=== PATIENT | female | born 1955 | race Caucasian/White ===

== ENCOUNTER 2017-09-24 14:44 | Emergency (ER) | payer MEDICARE, OTHER | END 2017-09-24 15:24 | disposition home or self-care (01) | LOC: SCSER 14:44 | DX: G89.28 Other chronic postprocedural pain (principal); Z46.3 Encounter for fitting and adjustment of dental prosthetic device; F41.9 Anxiety disorder, unspecified; F17.210 Nicotine dependence, cigarettes, uncomplicated; Z97.2 Presence of dental prosthetic device (complete) (partial) | CPT/HCPCS: 99282 ==

== ENCOUNTER 2017-12-23 14:00 | Emergency (ER) | payer MEDICARE, OTHER | END 2017-12-23 14:41 | disposition home or self-care (01) | LOC: SCSER 14:00 | DX: S00.512A Abrasion of oral cavity, initial encounter (principal); F43.10 Post-traumatic stress disorder, unspecified; F17.210 Nicotine dependence, cigarettes, uncomplicated; F41.0 Panic disorder [episodic paroxysmal anxiety]; X58.XXXA Exposure to other specified factors, initial encounter | CPT/HCPCS: 99282 ==

== ENCOUNTER 2018-11-18 15:58 | Emergency (ER) | payer MEDICARE, OTHER ==
--- NOTE | 2018-11-18 16:41 | RAD ---
Left RIBS 3 views Chest one view HISTORY: Fall. Chest injury. FINDINGS: Nondisplaced oblique fracture of the lateral aspect of the left sixth rib. No evidence of p neumothorax. Old healed fracture of the posterolateral aspect of the right sixth rib is apparent. IMPRESSION: Nondisplaced left sixth rib fracture. No pneumothorax.
[2018-11-18] MEDS ORDERED: Acetaminophen/Codeine 30-300mg Tablet ONE (16:55)
== END 2018-11-18 16:59 | disposition home or self-care (01) ==
LOC: SCSER 15:58
DX: S22.32XA Fracture of one rib, left side, initial encounter for closed fracture (principal); I10 Essential (primary) hypertension; F17.210 Nicotine dependence, cigarettes, uncomplicated; Z71.6 Tobacco abuse counseling; W19.XXXA Unspecified fall, initial encounter
CPT/HCPCS: 99406

== ENCOUNTER 2018-11-24 13:51 | Emergency (ER) | payer MEDICARE, OTHER ==
[2018-11-24] MEDS ORDERED: HYDROcodone/Acetaminophen 5/325 mg Tablet ONE (14:50)
--- NOTE | 2018-11-24 15:33 | RAD ---
Chest 2 views HISTORY: Chest pain. COMPARISON: 11/18/2018. FINDINGS: Cardiac silhouette and pulmonary vasculature are unremarkable. Mediastinum is midline. No c onfluent airspace consolidation, pneumothorax, or pleural fluid. Fracture of the posterolateral aspect of the right sixth rib is again demonstrated. IMPRESSION: Right sixth rib fracture appears stable. Age indeterminate. No active cardiopulmonary abnormalities are demonstrated.
--- NOTE | 2018-11-24 15:36 | RAD ---
Right forearm 2 views HISTORY: Worsening right wrist pain. Recent fracture. FINDINGS: An impacted, comminuted fracture of the distal radial metadiaphysis is present with minimal volar displacement of the major distal fragment and slight dorsal tilt. Mild callus formation. Fracture plane remains very lucent. No intra-articular extension is apparent. Mildly displaced avulsi on of the ulnar styloid. Osseous structures are demineralized. Mild degenerative changes of the wrist. IMPRESSION: Impacted dorsally angulated distal right radial fracture with some early changes of prudence senior. Prior exams not available for comparison. Associated ulnar styloid avulsion. Osteoporosis.
== END 2018-11-24 16:25 | disposition home or self-care (01) ==
LOC: SCSER 13:51
DX: S50.11XA Contusion of right forearm, initial encounter (principal); S22.32XD Fracture of one rib, left side, subsequent encounter for fracture with routine healing; E03.9 Hypothyroidism, unspecified; I10 Essential (primary) hypertension; F43.10 Post-traumatic stress disorder, unspecified; F41.0 Panic disorder [episodic paroxysmal anxiety]; F17.210 Nicotine dependence, cigarettes, uncomplicated; X58.XXXA Exposure to other specified factors, initial encounter
CPT/HCPCS: 71046